=== PATIENT | female | born 1985 | race Caucasian/White ===

== ENCOUNTER 2016-09-12 19:14 | Emergency (ER) | payer OTHER ==
[~2016-09-12] VITALS: Ht 160 cm; Wt 58.5 kg
[~2016-09-12 19:14] MED LIST: PRENAT PO
[2016-09-12 19:32] VITALS: Ht 160 cm; Wt 58.5 kg
[2016-09-12] MEDS ORDERED: NITR-58 PO (20:57)
[2016-09-12] MEDS ORDERED: PHEN-538 PO (20:57)
--- NOTE | 2016-09-12 21:02 | ERD ---
ER Documentation Chief Complaint Date/Time DATE: 09/12/16 TIME: 21:00 Chief Complaint AP X 2 days , urine frequency. HPI This is a 30-year-old female presenting to the emergency department complaining of suprapubic tenderness for the past 2 days with urinary frequency and painful urination. Patient rates this at 4-10. Patient states her last menstrual period was August 31. She states she is sexually active with condoms. Denies any hematuria or flank pain or fevers. She states that she tried Azo earlier today without any relief ROS All systems reviewed and are negative except as per history of present illness. Medications Home Meds Active Scripts Phenazopyridine Hcl* (Pyridium*) 200 Mg Tab, 200 MG PO TID Y for URINARY PAIN, # 15 TAB Prov:LEXY PERRIN PA-C 09/12/16 Nitrofurantoin Monohyd Macrocr* (Macrobid*) 100 Mg Capsr, 100 MG PO BID for 7 Days, CAP Prov:LEXY PERRIN PA-C 09/12/16 Reported Medications Multivit/Min/Fol Ac/Iron/Pren* ( S*) Unknown Strength Tab, PO DAILY, TAB 02/07/16 Allergies Allergies: Coded Allergies: No Known Allergy (Unverified , 02/05/16) PMhx/Soc Medical and Surgical Hx: pt denies Medical Hx, pt denies Surgical Hx Hx Alcohol Use: No Hx Substance Use: No Hx Tobacco Use: No Smoking Status: Never smoker Physical Exam Vitals Vital Signs Date Time Temp Pulse Resp B/P Pulse Ox O2 Delivery O2 Flow Rate FiO2 09/12/16 19:32 98.0 80 16 116/58 96 Physical Exam General: well-developed/well-nourished, in no apparent distress, non-toxic appearing HENT: NC/AT Eyes: Conjunctiva normal Neck: Supple Pulm: CTA bilaterally, normal breathing CV: Normal S1S2 GI: Soft, non-distended, normal bowel sounds, TTP on suprapubic region Back: No midline tenderness, no masses, No CVAT Ext: No clubbing, cyanosis, or edema Neuro: Alert and orientated Skin: intact, normal turgor Psych: Normal mood and mentation Procedures/MDM MDM: 30-year-old female presents to the ER with symptoms that are most consistent with urinary tract infection. Low suspicion for pyelonephritis, nephrolithiasis, ovarian torsion due to physical examination and diagnostic testing. Urine test is negative. Dipstick showed positive urinary tract infection.She is hemodynamically stable for discharge. Prescriptions Macrobid and Pyridium have been given to take as directed. Strict precautions were given to return to the ER if not improving as expected or for any worsening signs and symptoms Departure Diagnosis: Primary Impression: UTI (urinary tract infection) Urinary tract infection type: acute cystitis Hematuria presence: with hematuria Qualified Code: N30.01 - Acute cystitis with hematuria Condition: Stable Patient Instructions: Understanding Urinary Tract Infections (UTIs) Referrals: [facility] YOU HAVE RECEIVED A MEDICAL SCREENING EXAM AND THE RESULTS INDICATE THAT YOU DO NOT HAVE A CONDITION THAT REQUIRES URGENT TREATMENT IN THE EMERGENCY DEPARTMENT. FURTHER EVALUATION AND TREATMENT OF YOUR CONDITION CAN WAIT UNTIL YOU ARE SEEN IN YOUR DOCTORS OFFICE WITHIN THE NEXT 1-2 DAYS. IT IS YOUR RESPONSIBILITY TO MAKE AN APPOINTMENT FOR FOLOW-UP CARE. IF YOU HAVE A PRIMARY DOCTOR --you should call your primary doctor and schedule an appointment IF YOU DO NOT HAVE A PRIMARY DOCTOR YOU CAN CALL OUR PHYSICIAN REFERRAL HOTLINE AT IF YOU CAN NOT AFFORD TO SEE A PHYSICIAN YOU CAN CHOSE FROM THE FOLLOWING [facility] [address] [facility]. [facility] [address] [facility]. [facility] [address] [facility]. [facility] [address] [facility]. [facility] [phone] [facility]. [facility]. [address] Additional Instructions: FOLLOW UP WITH YOUR PRIMARY CARE PHYSICIAN TOMORROW.Return to this facility if you are not improving as expected. Take all medicines as directed. Return to this facility if you are not improving as expected. LEXY PERRIN PA-C Sep 12, 2016 21:02
[2016-09-12 21:04] LABS: URINE BLOOD (Dip) POC Negative (NEGATIVE)
== END 2016-09-12 23:19 | disposition home or self-care (01) ==
LOC: FTE 19:14
DX: N30.01 Acute cystitis with hematuria (principal)
CPT/HCPCS: 81003; 99283

== ENCOUNTER 2016-11-23 08:36 | Emergency (ER) | payer OTHER ==
[~2016-11-23] VITALS: Ht 154.9 cm; Wt 55.0 kg
[~2016-11-23 08:36] MED LIST changes: +NITR-58 PO; +PHEN-538 PO
[2016-11-23 08:39] VITALS: Ht 154.9 cm; Wt 55.0 kg
[2016-11-23 09:28] LABS: URINE BLOOD (Dip) POC Negative (NEGATIVE)
--- NOTE | 2016-11-23 09:33 | ERD ---
ER Documentation Chief Complaint Date/Time DATE: 11/23/16 TIME: 09:30 Chief Complaint cough x 2 weeks, dysuria x 2 days HPI This 31-year-old female who presents to the emergency department today with cough for the past 2 weeks, nasal congestion, conjunctivitis for the past 6 days and burning and pain with urination for the past 2 days. States that she has tried TheraFlu and DayQuil. Patient states she has had urinary tract infection in the past. 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 Denies any fevers or chills,, body aches, nausea vomiting or diarrhea ROS All systems reviewed and are negative except as per history of present illness. Medications Home Meds Active Scripts Polymyxin B Sulfate-TMP* (Polymyxin B-TMP Eye Drops*) 10 Ml Drops, 1 DROP BOTH EYES QID for 7 Days, EA Prov:JOHN NAGY PA-C 11/23/16 Guaifenesin-Dextromethorphan* (Robitussin* DM) 100MG/10MG/5ML Syrup, 10 ML PO Q6H Y for COUGH for 5 Days, ML Prov:JOHN NAGY PA-C 11/23/16 Fluticasone Propionate (Flonase Allergy Relief) 9.9 Ml [place].susp, 1 SPRAY NASAL BID, #1 BOTTLE TO EACH NOSTRIL Prov:JOHN NAGY PA-C 11/23/16 Azithromycin* (Zithromax*) 250 Mg Tablet, 250 MG PO .ZPACK DIRECTED, #6 TAB TAKE 500 MG (2 TABS) THE FIRST DAY THEN 250 MG (1 TAB) DAYS 2-5 Prov:JOHN NAGY PA-C 11/23/16 Phenazopyridine Hcl* (Pyridium*) 200 Mg Tab, 200 MG PO TID Y for URINARY PAIN, # 6 TAB Prov:JOHN NAGY PA-C 11/23/16 Phenazopyridine Hcl* (Pyridium*) 200 Mg Tab, 200 MG PO TID Y for URINARY PAIN, # 15 TAB Prov:LEXY PERRIN PA-C 09/12/16 Nitrofurantoin Monohyd Macrocr* (Macrobid*) 100 Mg Capsr, 100 MG PO BID for 7 Days, CAP Prov:LEXY PERRIN PA-C 09/12/16 Reported Medications Multivit/Min/Fol Ac/Iron/Pren* ( S*) Unknown Strength Tab, PO DAILY, TAB 02/07/16 Allergies Allergies: Coded Allergies: No Known Allergy (Unverified , 02/05/16) PMhx/Soc History of Surgery: No Anesthesia Reaction: No Hx Neurological Disorder: No Hx Respiratory Disorders: No Hx Cardiac Disorders: No Hx Psychiatric Problems: No Hx Miscellaneous Medical Probl: No Hx Alcohol Use: No Hx Substance Use: No Hx Tobacco Use: No Smoking Status: Never smoker Physical Exam Vitals Vital Signs Date Time Temp Pulse Resp B/P Pulse Ox O2 Delivery O2 Flow Rate FiO2 11/23/16 08:39 98.1 71 18 118/51 99 Physical Exam Const: No acute distress Head: Atraumatic Eyes: Normal Conjunctiva ENT: Ears TMs normal. Nose no drainage. Throat no erythema no exudate Neck: Full range of motion..~ No meningismus. Resp: Clear to auscultation bilaterally. No absent breath sounds. No wheezing. Cardio: Regular rate and rhythm, no murmurs Abd: Soft, mild suprapubic tenderness non distended. Normal bowel sounds. No right lower quadrant pain. No tenderness to McBurney's. No left lower quadrant pain. Skin: No petechiae or rashes Neur: Awake and alert Psych: Normal Mood and Affect Results 24 hrs Laboratory Tests Test 11/23/16 09:27 Bedside Urine pH (LAB) 6.5 Bedside Urine Protein (LAB) Negative Bedside Urine Glucose (UA) Negative Bedside Urine Ketones (LAB) Negative Bedside Urine Blood Negative Bedside Urine Nitrite (LAB) Negative Bedside Urine Leukocyte Esterase (L Negative Procedures/MDM This is a 31-year-old female who presents to the emergency department today with multiple complaints. Patient has had a dry cough for the past 2 weeks. She is afebrile and otherwise well-appearing. Her oxygen saturation is 99%. I do not feel the patient requires a chest x-ray at this time however given the duration of her symptoms I will give her a prescription for azithromycin to treat possible bronchitis versus viral URI. Patient also reported conjunctivitis and nasal congestion which may be viral in nature. I will give her a prescription for Flonase and Zyrtec as well as Robitussin. I have low suspicion for strep pharyngitis, peritonsillar abscess, retropharyngeal abscess, otitis media, PNA, sinusitis, abscess, meningitis, sepsis, or other acute infectious bacterial process. I did obtain a UA UA is negative for infection. I will send the urine for gonorrhea and chlamydia. Patient was given a prescription for Pyridium. 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 Low suspicion for preseptal cellulitis, orbital cellulitis. At this time the patient is stable for discharge and outpatient management. Patient should follow up with their PCP in the next 1-2 days. They may return to the emergency department sooner for any persistent or worsening of symptoms. Patient understood and agreed with the plan. Departure Diagnosis: Primary Impression: Multiple complaints Condition: JOHN Yates PA-C Nov 23, 2016 09:33
[2016-11-23] MEDS ORDERED: PHEN-538 PO (09:36)
[2016-11-23] MEDS ORDERED: AZIT250T94 PO (09:36)
[2016-11-23] MEDS ORDERED: FLUT9.9S NASAL (09:36)
[2016-11-23] MEDS ORDERED: POLY10DR19 BOTH EYES (09:37)
[2016-11-23] MEDS ORDERED: UDROBDM PO (09:37)
== END 2016-11-23 09:43 | disposition home or self-care (01) ==
LOC: FTE 08:36
DX: R05 Cough (principal); R09.81 Nasal congestion; H10.9 Unspecified conjunctivitis; R30.9 Painful micturition, unspecified
CPT/HCPCS: 81003; 87591; 99284

== ENCOUNTER 2018-05-05 20:40 | Emergency (ER) | END 2018-05-05 23:35 | disposition home or self-care (01) ==

== ENCOUNTER 2018-05-10 06:55 | Emergency (ER) | END 2018-05-10 07:41 | disposition home or self-care (01) ==

== ENCOUNTER 2018-10-25 23:03 | Emergency (ER) | payer OTHER ==
[~2018-10-25] VITALS: Ht 160 cm; Wt 61.6 kg
[~2018-10-25 23:03] MED LIST changes: +AMOX1TAB10 PO; +AZIT250T PO; +BENZ-6 PO; +FLUT9.9S NASAL; +GUAI5SYR2 PO; +NAPR-985 PO; +POLY10DR19 BOTH EYES; +PROM6.2515 PO; +PSEU30TA38 PO
[2018-10-25 23:10] VITALS: Ht 160 cm; Wt 61.6 kg
[2018-10-26] MEDS ORDERED: ONDANSETRON (ODT) 4 MG TAB ODT STA (01:44)
[2018-10-26] MEDS ORDERED: KETOROLAC 60 MG INJ IM STA (01:44)
[2018-10-26] MEDS ORDERED: ACET500C5 PO (01:58)
[2018-10-26] MEDS ORDERED: ONDA8TAB14 PO (01:58)
--- NOTE | 2018-10-26 01:58 | ERD ---
ER Documentation Chief Complaint Chief Complaint n/v and AP today HPI 33-year-old female presents with history of vomiting, diffuse abdominal pain, diarrhea, body aches since this morning. Denies eating any unusual foods or having sick contacts. Vomitus and diarrhea is clear. States that she was unable to hold down liquids until just recently. taking Pepto-Bismol. Is able to ambulate. Denies fevers. Denies focal lower right quadrant pain, migration of pain. denies past medical history. Denies allergies. Denies medications. History of . Denies alcohol, tobacco, drug use. Up to date on vaccines. ROS All systems reviewed and are negative except as per history of present illness. Medications Home Meds Active Scripts Loperamide Hcl* (Imodium*) 2 Mg Capsule, 2 MG PO .AFTER EA LOOSE BM PRN for DIARRHEA, #10 TAB Prov:MAKEDA JARAMILLO 10/26/18 Acetaminophen* (Tylophen*) 500 Mg Capsule, 2 CAP PO Q8H PRN for PAIN AND OR ELEVATED TEMP, #20 CAP Prov:MAKEDA JARAMILLO 10/26/18 Ondansetron (Ondansetron Odt) 8 Mg Tab.rapdis, 8 MG PO Q6H PRN for NAUSEA AND/OR VOMITING, #10 TAB Prov:MAKEDA JARAMILLO 10/26/18 Pseudoephedrine Hcl* (Pseudoephedrine Hcl*) 30 Mg Tablet, 30 MG PO Q6 PRN for CONGESTION, #30 TAB Prov:TOBIN RICH PA-C 05/10/18 Promethazine Hcl* (Promethazine Hcl* Syrup) 6.25 Mg/5 Ml Syrup, 6.25 MG PO Q6H PRN for COUGH, #100 ML Prov:TOBIN RICH PA-C 05/10/18 Amoxicillin/Potassium Clav (Amox-Clav 875-125 mg Tablet) 875-125 mg Tab, 1 TAB PO BID for 7 Days, #14 TAB Prov:TOBIN RICH PA-C 05/10/18 Polymyxin B Sulfate-TMP* (Polymyxin B-TMP Eye Drops*) 10 Ml Drops, 1 DROP BOTH EYES QID for 7 Days, EA Prov:TOBIN RICH PA-C 05/10/18 Promethazine Hcl* (Promethazine Hcl* Syrup) 6.25 Mg/5 Ml Syrup, 6.25 MG PO Q6H PRN for COUGH, #100 ML Prov:TOBIN RICH PA-C 05/05/18 Naproxen* (Naprosyn*) 500 Mg Tablet, 500 MG PO BID PRN for PAIN AND/OR INFLAMMATION, #30 TAB Prov:TOBIN RICH PA-C 05/05/18 Benzonatate* (Tessalon Perle*) 100 Mg Capsule, 100 MG PO Q8H PRN for COUGH, #30 CAP Prov:TOBIN RICH PA-C 05/05/18 Polymyxin B Sulfate-TMP* (Polymyxin B-TMP Eye Drops*) 10 Ml Drops, 1 DROP BOTH EYES QID for 7 Days, EA Prov:JOHN NAGY PA-C 11/23/16 Guaifenesin-Dextromethorphan* (Robitussin* DM) 100MG/10MG/5ML Syrup, 10 ML PO Q6H PRN for COUGH for 5 Days, ML Prov:JOHN NAGY PA-C 11/23/16 Fluticasone Propionate (Flonase Allergy Relief) 9.9 Ml [place].susp, 1 SPRAY NASAL BID, #1 BOTTLE TO EACH NOSTRIL Prov:JOHN NAGYC 11/23/16 Azithromycin* (Zithromax*) 250 Mg Tablet, 250 MG PO .RIGOBERTO DIRECTED, #6 TAB TAKE 500 MG (2 TABS) THE FIRST DAY THEN 250 MG (1 TAB) DAYS 2-5 Prov:JOHN NAGY PA-C 11/23/16 Phenazopyridine Hcl* (Pyridium*) 200 Mg Tab, 200 MG PO TID PRN for URINARY PAIN, #6 TAB Prov:JOHN NAGY PA-C 11/23/16 Phenazopyridine Hcl* (Pyridium*) 200 Mg Tab, 200 MG PO TID PRN for URINARY PAIN, #15 TAB Prov:LEXY PERRIN PA-C 09/12/16 Nitrofurantoin Monohyd Macrocr* (Macrobid*) 100 Mg Capsr, 100 MG PO BID for 7 Days, CAP Prov:LEXY PERRIN Tino [facility] 09/12/16 Reported Medications Multivit/Min/Fol Ac/Iron/Pren* ( S*) Unknown Strength Tab, PO DAILY, TAB 02/07/16 Allergies Allergies: Coded Allergies: No Known Allergy (Unverified , 05/05/18) PMhx/Soc History of Surgery: No Anesthesia Reaction: No Hx Neurological Disorder: No Hx Respiratory Disorders: No Hx Cardiac Disorders: No Hx Psychiatric Problems: No Hx Miscellaneous Medical Probl: No Hx Alcohol Use: No Hx Substance Use: No Hx Tobacco Use: No FmHx Family History: No diabetes, No coronary disease, No other Physical Exam Vitals Vital Signs Date Temp Pulse Resp B/P (MAP) Pulse Ox O2 O2 Flow FiO2 Time Delivery Rate 10/26/18 98.9 02:54 10/25/18 100.1 98 16 113/57 96 23:10 (75) Physical Exam Const: No acute distress Head: Atraumatic Eyes: Normal Conjunctiva ENT: Normal External Ears, Nose and Mouth. Neck: Full range of motion. No meningismus. Resp: Clear to auscultation bilaterally Cardio: Regular rate and rhythm, no murmurs Abd: Diffusely TTP but without rigidy or guarding. No McBurneys. Patient able to jump up and down on exam. Skin: No petechiae or rashes Back: No midline or flank tenderness Ext: No cyanosis, or edema. Normal cap refill. Neur: Awake and alert Psych: Normal Mood and Affect Results 24 hrs Laboratory Tests Test 10/26/18 01:59 10/26/18 02:01 Bedside Urine pH (LAB) 6.0 Bedside Urine Protein (LAB) 1+ Bedside Urine Glucose (UA) Negative Bedside Urine Ketones (LAB) Trace Bedside Urine Blood Negative Bedside Urine Nitrite (LAB) Negative Bedside Urine Leukocyte Esterase (L Negative POC Beta HCG, Qualitative NEGATIVE Current Medications Medications Dose Sig/Estuardo Start Time Status Last (Trade) Ordered Route PRN Stop Time Admin Dose Reason Admin Ondansetron 8 mg ONCE STAT 10/26/18 DC 10/26/18 HCl (Zofran ODT 01:44 10/26/18 02:03 Odt) 01:47 Ketorolac 60 mg ONCE STAT 10/26/18 DC 10/26/18 Tromethamine IM 01:44 10/26/18 02:03 (Toradol) 01:47 Procedures/MDM 33-year-old female presents with history of vomiting, diffuse abdominal pain, diarrhea, body aches since this morning. Denies eating any unusual foods or having sick contacts. Vomitus and diarrhea is clear. States that she was un able to hold down liquids until just recently. taking Pepto-Bismol. Is able to ambulate. Denies fevers. Denies focal lower right quadrant pain, migration of pain. Patient was administered toradol and zonfran in the ER. When I went to reevaluate the patient she stated she was feeling much better and was able to drink and hold down liquids. At that point she denies any abdominal pain. I have low suspicion for appendicitis due to patient history and exam, including normal abdominal exam, lack of McBurney's point tenderness and ability of patient to jump up and down on exam. I have low suspicion for volvulus or obstruction due patient history and exam, including lack of history of biliary emesis. I have low suspicion for dehydration due to moist and pink mucous membranes, patients non lethargic state, passing PO challenge test, and normal cap refill. I have low suspicion of DKA based on patient history and exam. I have low suspicion for adrenal crisis, AAA, mesenteric ischemia, pyelonephritis, cholecystitis, aortic dissection, ectopic, SC, pneumonia, acute pancreatitis, PID, or other emergent causes based on patient history and exam. Most likely diagnosis is viral gastroenteritis. Based on these findings I do not feel that additional labs, imaging. or antibiotics are necessary. After passing PO challenge, patient was discharged with rx for zofran, immodium, and tylenol. Ryan navarro was discharged with strict ER precautions. Patient was recommended to follow-up with PMD. All questions answered at discharge. Departure Diagnosis: Primary Impression: Gastroenteritis Condition: Stable MAKEDA JARAMILLO Oct 26, 2018 01:57
[2018-10-26] MEDS ORDERED: LOPE2CAP PO (02:46)
== END 2018-10-26 02:55 | disposition home or self-care (01) ==
LOC: FTE 23:03
DX: K52.9 Noninfective gastroenteritis and colitis, unspecified (principal)
CPT/HCPCS: 81003; 81025; 96372; 99284; J1885